=== PATIENT | male | born 1965 | race Caucasian/White ===

== ENCOUNTER 2020-11-05 18:37 | Emergency (ER) | payer MEDICAID ==
[~2020-11-05] VITALS: Ht 188 cm; Wt 97.5 kg
[2020-11-05] MEDS ORDERED: CEPH500C2 PO (18:56)
[2020-11-05] MEDS ORDERED: SULF1TAB48 PO (18:56)
[2020-11-05] MEDS ORDERED: TDAP DIPH,PERTUSS,TET VAC/PF 0.5 ML DISP.SYRIN IM ONE ×2 (19:00→19:05)
[2020-11-05] MEDS ORDERED: CEFTRIAXONE 1 G VIAL IM ONE (19:00)
[2020-11-05] MEDS ORDERED: SULFAMETH/TRIMETH 800/160 MG TABLET PO ONE (19:00)
[2020-11-05] MEDS ORDERED: SULFAMETH/TRIMETH 800/160 MG TABLET ONE (19:05)
[2020-11-05] MEDS ORDERED: CEFTRIAXONE 1 G VIAL ONE (19:05)
[2020-11-05] MEDS ORDERED: LIDOCAINE HCL 1% 20 ML VIAL ONE (19:06)
--- NOTE | 2020-11-05 19:15 | NUR ---
Patient discharged to home in stable condition. Written and verbal after care instructions given. Patient verbalizes understanding of instructions. Stressed follow up or return to ER for worsening s/s.pt walks in steady gait, no reaction to antibiotic reported by pt.
== END 2020-11-05 19:18 | disposition home or self-care (01) ==
LOC: ER 18:40
DX: S80.862A Insect bite (nonvenomous), left lower leg, initial encounter (principal); L03.116 Cellulitis of left lower limb; W57.XXXA Bitten or stung by nonvenomous insect and other nonvenomous arthropods, initial encounter; Y92.89 Other specified places as the place of occurrence of the external cause
CPT/HCPCS: 90471; 90715; 96372; 99283; J0696; J3490; A4663

== ENCOUNTER 2020-11-13 18:08 | Emergency (ER) | payer MEDICAID ==
[~2020-11-13] VITALS: Ht 188 cm; Wt 97.5 kg
[~2020-11-13 18:08] MED LIST: CEPH500C2 PO; SULF1TAB48 PO
[2020-11-13 19:28] LABS: BASOPHILS % (AUTO) 1.1 % (0.0-2.0); EOSINOPHILS # (AUTO) 0.2 K/uL (0.0-0.7); EOSINOPHILS % (AUTO) 3.5 % (0.0-7.0); HEMATOCRIT 40.2 % (36.7-47.1); HEMOGLOBIN 13.5 g/dL (12.5-16.3); LYMPHOCYTES # (AUTO) 1.4 K/uL (20.0-40.0); LYMPHOCYTES % (AUTO) 31.4 % (20.5-51.5); MEAN CORPUSCULAR HEMOGLOBIN 26.8 uug (23.8-33.4); MEAN CORPUSCULAR HGB CONC 34 g/dL (32.5-36.3); MEAN CORPUSCULAR VOLUME 79.9 fL (73.0-96.2); MONOCYTES # (AUTO) 0.5 K/uL (2.0-10.0); MONOCYTES % (AUTO) 11.8 % (0.0-11.0); NEUTROPHILS # (AUTO) 2.3 K/uL (1.8-8.9); NEUTROPHILS % (AUTO) 52.2 % (38.5-71.5); PLATELET COUNT (AUTO) 239 K/uL (152-348); RED BLOOD CELL COUNT(AUTO) 5.03 MIL/uL (4.06-5.63); WHITE BLOOD COUNT (AUTO) 4.4 K/uL (3.6-10.2)
[2020-11-13 19:33] LABS: CREATININE 1.2 mg/dL (0.6-1.3); POTASSIUM 3.9 mmol/L (3.5-5.1)
[2020-11-13 19:50] LABS: BILIRUBIN,DIRECT 0.1 mg/dL (0.0-0.2); BILIRUBIN,TOTAL 0.4 mg/dL (0.2-1.0); TOTAL PROTEIN, SERUM 7.4 g/dL (6.4-8.2)
--- NOTE | 2020-11-13 20:27 | NUR ---
Patient discharged to home in stable condition. Written and verbal after care instructions given. Patient verbalizes understanding of instructions. Stressed follow up or return to ER for worsening s/s.
[2020-11-13 20:28] VITALS: BP 140/88
== END 2020-11-13 20:28 | disposition home or self-care (01) ==
LOC: ER 18:08
DX: I87.2 Venous insufficiency (chronic) (peripheral) (principal); R60.0 Localized edema
CPT/HCPCS: 36415; 70030-TC; 73590; 83605; 85025; 85730; 87040; A4663

== ENCOUNTER 2021-09-13 18:18 | Emergency (ER) | payer MEDICAID ==
[~2021-09-13] VITALS: Ht 188 cm; Wt 97.5 kg
--- NOTE | 2021-09-14 01:31 | NUR ---
Pt not in waiting room.
== END 2021-09-14 01:33 | disposition left against medical advice (07) ==
LOC: ER 18:19
DX: R68.89 Other general symptoms and signs (principal)
CPT/HCPCS: 71045; A4663